=== PATIENT | male | born 1980 | race Hispanic/Latino ===

== ENCOUNTER 2022-10-20 16:28 | Emergency (ER) | payer OTHER ==
[~2022-10-20] VITALS: Ht 180.3 cm; Wt 59.9 kg
[2022-10-20 21:11] VITALS: BP 138/64
[2022-10-20] MEDS ORDERED: METH4TAB3 PO (21:17)
[2022-10-20] MEDS ORDERED: ACET-66 PO (21:17)
[2022-10-20] MEDS ORDERED: CYCL5TAB PO (21:17)
[2022-10-20] MEDS ORDERED: HYDROCODONE/ACETAMINOPHEN 5/325 MG TAB PO ONE (21:30)
[2022-10-20] MEDS ORDERED: ACET-2079 PO (21:38)
== END 2022-10-20 21:24 | disposition home or self-care (01) ==
LOC: EDH 16:28
DX: S39.012A Strain of muscle, fascia and tendon of lower back, initial encounter (principal); Z79.899 Other long term (current) drug therapy; Z98.890 Other specified postprocedural states; X58.XXXA Exposure to other specified factors, initial encounter; Y93.89 Activity, other specified; Y92.89 Other specified places as the place of occurrence of the external cause; Y99.8 Other external cause status

== ENCOUNTER 2024-06-18 08:48 | Emergency (ER) | payer BC ==
[~2024-06-18] VITALS: Ht 177.8 cm; Wt 68.0 kg
[~2024-06-18 08:48] MED LIST: ACET-2079 PO; ACET-66 PO; CYCL5TAB3 PO; METH4TAB3 PO
[2024-06-18] MEDS ORDERED: CIPR7.5D7 OTIC (09:46)
[2024-06-18] MEDS ORDERED: MELO-108 PO (09:46)
--- NOTE | 2024-06-18 09:46 | ERN ---
General Chief Complaint: Earache Stated Complaint: RT EAR PAIN, CHRONIC BACK PAIN Time Seen by MD: 08:58 History of Present Illness Initial Comments 44-year-old male who history of chronic back pain presents for right ear pain beginning yesterday. Reports tenderness to the pinna. No discharge. No fevers. He also reports some chronic back pain, he takes muscle relaxers at Tylenol. No red flags. He has had this for over a year. Allergies: Coded Allergies: No Known Drug Allergies (Unverified Allergy, Unknown, 10/20/22) Home Meds Active Scripts Acetaminophen with Codeine (Acetaminophen-Cod #3 Tablet) 1 Each Tablet, 1 TAB PO Q4H PRN for s39.012, #10 TAB Prov:SHELLY CARROLL 10/20/22 Methylprednisolone (Medrol) 4 Mg Tab.ds.pk, 4 MG PO AD for 5 Days, #1 PACK Prov:SHELLY CARROLL 10/20/22 Cyclobenzaprine HCl (Cyclobenzaprine HCl) 5 Mg Tablet, 5 MG PO DAILYDINNER for 5 Days, #5 TAB Prov:SHELLY CARROLL 10/20/22 Acetaminophen (Acetaminophen) 500 Mg Tablet, 500 MG PO Q4PRN for lumbosacral strain for 5 Days, #15 TAB Prov:SHELLY CARROLL 10/20/22 Past Medical History Past Medical History: Other Medical History Other: CHRONINC BACK PAIN, LEFT KNEE CELLULITIS W I&D Past Surgical History: None ROS Dictation CONSTITUTIONAL: No chills, no fever, no weakness, no diaphoresis, no malaise. HEAD/FACE: No signs of trauma. EENT: Right otitis externa RESPIRATORY: No cough, no orthopnea, no SOB, no stridor, no wheezing. CARDIOVASCULAR: No chest pain, no edema, no palpitations, no syncope. GASTROINTESTINAL/ABDOMINAL: No abdominal pain, no constipation, no diarrhea, no nausea, no vomiting. GENITOURINARY: No abnormal discharge, no dysuria, no frequent urination, no h ematuria. No complaints of pain in the genitals. MUSCULOSKELETAL: N lower back pain INTEGUMENTARY: No change in color, no change in hair/nails, no dryness, no lesion, no lumps, no rash. NEUROLOGICAL/PSYCH: No anxiety, not depressed, no emotional problem, no headache, no numbness, no pre-existing deficit, no history of seizures, no tremors, no weakness. HEMATOLOGIC/LYMPHATIC: Not anemic, no history of blood clots, no apparent bleeding, no bruising, glands not swollen. All Systems Negative, Except as Noted. Physical Exam Physical Exam Dictation VITAL SIGNS: Reviewed. GENERAL APPEARANCE: Alert, oriented x3, no acute distress, obese. HEAD AND FACE: Non-traumatic. EYES: PERRL, pink conjunctivas, eyelid no trauma, anterior chamber clear. EARS: Erythema to the canal, TMs clear, no mastoiditis NOSE: No discharge, no bleeding. OROPHARYNX: Mouth normal, teeth no caries, tongue pink. Pharynx clear, no erythema. Tonsils no exudates, no abscesses noted. Mucous membrane moist. NECK: Supple, non-tender, no thyromegaly, no masses, no JVD, no bruits. BREAST: Deferred. CHEST: No tenderness, no crepitus, no paradoxical movement, no retractions. LUNGS: Clear, well-ventilated, symmetric, no rales, no wheezing, no rhonchi, no stridor, good breath sounds bilaterally. HEART: Regular rate, regular rhythm, no murmur, no gallops. VASCULAR: No peripheral edema. ABDOMEN: Soft, positive bowel sounds, nondistended, no guarding, nontender, no rebound, no masses no hepatomegaly, no splenomegaly, no Carreor's sign, no hernias. RECTAL: Deferred. GENITAL: Deferred. NEUROLOGICAL: Normal speech, gross motor function intact, gross sensory function intact. MUSCULOSKELETAL: Neck nontender, full range of motion, back nontender, full ran ge of motion. EXTREMITIES: Nontender, full range of motion. SKIN: Color pink, dry, no turgor, no rash, no lacerations, no abrasions, no contusions. LYMPHATICS: Deferred. MDM CC: Right ear pain, chronic back pain Historian: Patient Comorbidities: Chronic back pain Vital signs are stable Limitations by social determinants of health: None Differential diagnosis: Otitis externa, otitis media, mastoiditis, SIRS, sepsis, other. No labs or imaging indicated No clinical exam he has a no size externa. We will treat with Ciprodex. Also has chronic back pain, he has only taken muscle relaxers and Tylenol. We will give a dose of ibuprofen and [place] here and we will DC with meloxicam. Patient agrees with the plan. ED Course Orders Procedure Category Date Status Time Ibuprofen 800 Mg Tab PHA 06/18/24 Verified (Motrin) 10:00 Hydrocodone/Apap PHA 06/18/24 Verified 5/325 ([place] 5/325mg) 10:00 Vital Signs Date Time Temp Pulse Resp B/P (MAP) Pulse Ox O2 Delivery O2 Flow Rate FiO2 06/18/24 08:53 98.2 87 16 134/98 100 Room Air* 0 21 06/18/24 08:50 98.2 98 16 134/98 100 Room Air 0 DX & DISP Disposition: Discharge Departure Impression: Primary Impression: Right otitis externa Additional Impression: Chronic back pain Condition: Stable Scripts Meloxicam (Meloxicam) 15 Mg Tablet 15 MG PO DAILY PRN for PAIN for 10 Days, #10 TAB Prov: SAIDA PONCE DO 06/18/24 Ciprofloxacin HCl/Dexameth (Ciproflox-Dexameth Otic Susp) 0.3 %-0.1 % Drops.susp 4 DROP OTIC BID for 7 Days, #7.5 ML 0 Refills Prov: SAIDA PONCE DO 06/18/24 Additional Instructions: You have a right external ear infection, otitis externa. I have prescribed Ciprodex drops. Take as prescribed. For your back pain, I have prescribed meloxicam. You can continue taking muscle relaxants and Tylenol based medications with this medication. Please follow up with her primary doctor regarding this. If your it does not improve over the next few days, I recommend re-evaluation with your primary doctor. Please return to the emergency department if you have any concerns. Referrals: NONE (PCP) SAIDA PONCE DO Jun 18, 2024 09:46
[2024-06-18] MEDS: HYDROcodone/APAP 5/325 1 TAB TABLET PO ONE (09:51)
[2024-06-18] MEDS: ibuPROFEN 800 MG TAB PO ONE (09:51)
[2024-06-18 09:52] VITALS: BP 131/87; PULSE 85; RESP 16; TEMP 98.2; O2SAT 100
== END 2024-06-18 10:05 | disposition home or self-care (01) ==
LOC: EDH 08:48
DX: H60.91 Unspecified otitis externa, right ear (principal); G89.29 Other chronic pain; M54.50 Low back pain, unspecified